=== PATIENT | female | born 1945 | race Caucasian/White ===

== ENCOUNTER → 2017-12-19 | Outpatient (CLI) | payer MEDICARE, BC ==
[~2017-12-19] MED LIST: ASPIRIN81 MG PO; ATENOLOL50 MG PO; ATORVASTATIN CA20 MG PO; BIOTIN2500 MCG PO; CHLORDIAZEPOXID25 MG PO; CLOPIDOGREL75 MG PO; COENZYME Q10200 MG PO; DICYCLOMINE HCL10 MG PO; GEMFIBROZIL600 MG PO; IOPAMIDOL 370 MG/ML 200 ML INFUS..BTL INJ ONE; LOSARTAN-HCTZ1 EAC1 PO; MICARDIS HCT 41 EACH PO; MONTELUKAST SOD10 MG PO; PRESERVISION A1 EAC1 PO; SODIUM CHLORIDE 0.9% 100 ML ONE; SODIUM CHLORIDE 0.9% 50ML 50 ML ONE; TRIAMCINOLONE A15 G1; VITAMIN B-121000 MCG PO; [UNRECOGNIZED DRUG - OTHER] PO
[2017-12-19 10:55] LABS: CREATININE, SERUM 0.92 mg/dL (0.57-1.11)
--- NOTE | 2017-12-19 13:13 | Diagnostic Imaging Report ---
CT abdomen and pelvis, 12/19/2017 Clinical history: Renal artery stenosis Comparison: Aortogram September 28, 2016; CT abdomen March 13, 2017 Technique: Arterial phase CT abdomen and pelvis after administration of 100 mL Isovue-370 intravenous contrast. Volume rendered 3-D images of the arterial tree generated on an independent workstation under physician supervision. DLP: 321.94 Findings: Vascular: Aortic dimensions: Diaphragmatic hiatus: 2 cm Level of the renal arteries: 1.8 cm Infrarenal aorta: 1.6 cm The abdominal aorta is of normal course and caliber. Fsy-zgxh-ptphpqfp arterial sclerosis predominantly infrarenal aorta extending into the common iliac arteries. Common and external iliac arteries are otherwise unremarkable. Celiac axis: Mild wkr-zsij-thcpdyuq ostial calcification. Normal caliber. Atherosclerosis of the splenic artery. SMA: Greater than 75% 1 cm long ostial stenosis. JIGNA: Normal Renal arteries: Right: Proximal segment stent. The proximal aspect of the stent is stenotic (image 44, series 401) with greater than 60% luminal stenosis. Single artery with mild post stenotic dilation of the mid segment. Left: 50% ostial stenosis measuring about 9 mm in length. Single artery. The renal arteries are otherwise unremarkable. Particularly, the mid and distal segments are of otherwise normal caliber, as are the major divisional and arcuate arteries. Nonvascular findings: Lung bases: Normal Liver: Normal Gallbladder: Cholecystectomy. Pancreas: Normal Spleen: Normal. Adrenal glands: Normal Kidneys: Right parenchymal atrophy. Low-attenuation nodules bilaterally in keeping with cysts. Urinary bladder: Normal Uterus and adnexa: Normal Bowel: Normal caliber. Normal appendix. Descending and sigmoid colon diverticulosis. Peritoneum: Normal Lymph nodes: Normal Skeleton: Intact. L3-S1 facet arthropathy without gross neural foramen stenosis. Soft tissues: Normal Impression: 1. Persistent right renal artery stenosis. The indwelling stent is stenotic at its origin, with greater than 60% luminal narrowing. 2. Proximal SMA flow-limiting stenosis (greater than 75%). 3. 50% ostial stenosis of the left renal artery. 4. Atrophic right kidney in keeping with long-standing renal artery stenosis. Simple renal cysts. This report was generated with voice-recognition technology. Errors in space control supervisor can occur. Please interpret accordingly and contact a radiologist if there are any questions regarding the report. Signed by: Dr. Eduardo Arroyo M.D. on 12/19/2017 1:09 PM
== END ==
LOC: CT 10:04
PROVIDERS: ATTEND Internal Medicine Interventional Cardiology
DX: R10.9 Unspecified abdominal pain (principal); I70.1 Atherosclerosis of renal artery
CPT/HCPCS: 36415; 74174; 82565; 84520; J7050; Q9967

== ENCOUNTER 2018-01-09 11:22 | Observation (INO) | payer MEDICARE, BC ==
[2018-01-08 13:15] LABS: BASOPHILS # (AUTO) 0.1 (0.0-0.1); EOSINOPHILS # (AUTO) 0.8 (0.0-0.4); HEMATOCRIT 38.4 % (34.2-44.1); HEMOGLOBIN 12.8 g/dL (12.0-16.0); LYMPHOCYTES # (AUTO) 1.9 (1.0-3.2); LYMPHOCYTES % 26.6 % (18.0-39.1); MEAN CORPUSCULAR HEMOGLOBIN 30.7 pg (28-32); MEAN CORPUSCULAR HGB CONC 33.3 g/dL (31-35); MEAN CORPUSCULAR VOLUME 92.1 fL (81-99); MONOCYTES # (AUTO) 0.8 (0.2-0.8); MONOCYTES % 11.4 % (4.4-11.3); NEUTROPHILS # (AUTO) 3.5 (2.1-6.9); NEUTROPHILS % 49.9 % (38.7-80.0); PLATELET COUNT 224 x10e3/uL (140-360); RED BLOOD COUNT 4.17 x10e6/uL (3.6-5.1); RED CELL DISTRIBUTION WIDTH 13.1 % (11.7-14.4)
[2018-01-08 13:36] LABS: ALBUMIN 3.3 g/dL (3.5-5.0); ALBUMIN/GLOBULIN RATIO 0.8 (0.8-2.0); ANION GAP 12.3 mmol/L (8-16); CREATININE, SERUM 1.06 mg/dL (0.57-1.11); POTASSIUM 4.3 mmol/L (3.5-5.1)
[~2018-01-09] VITALS: Ht 157.5 cm; Wt 62.2 kg
[~2018-01-09 11:22] MED LIST changes: +CALCIUM PO; -IOPAMIDOL 370 MG/ML 200 ML INFUS..BTL INJ ONE; -SODIUM CHLORIDE 0.9% 100 ML ONE; -SODIUM CHLORIDE 0.9% 50ML 50 ML ONE; -TRIAMCINOLONE A15 G1; +TRIAMCINOLONE A15 G1 TOP; +ZANTAC 7575 MG PO
--- OUTSIDE RECORDS SUMMARY | 2018-01-09 11:23 | XMS REPORT ---
Author Author [facility] Address Unknown Phone Unavailable Care Team Providers Care Aircraft Maintenance Manager Name Role Phone CRIS STEVENS Unavailable Unavailable Problems This patient has no known problems. Allergies, Adverse Reactions, Alerts This patient has no known allergies or adverse reactions. Medications This patient has no known medications. Results Test Description Test Time Test Comments Text Results Atomic Results Result Comments CTA ABD/PELVIS [place] [address] Patient Name: BAILEE CAMERON MR #: [id number] : 1945 Age/Sex: 72/F Req #: [id number] Adm Physician: Ordered by: CRIS STEVENS MD Report #: [id number] Location: CT Room/Bed: Procedure: [id number] CT/CTA ABD/PELVIS Exam Date: 12/19/17 Exam Time: 1121 REPORT STATUS: Signed CT abdomen and pelvis, 12/19/2017 Clinical history: Renal artery stenosis Comparison: Aortogram September 28, 2016 ; CT abdomen March 13, 2017 Technique: Arterial phase CT abdomen and pelvis after administration of 100 mL Isovue-370 intravenous contrast. Volume rendered 3-D images of the arterial tree generated on an independent workstation under physician supervision. DLP: 321.94 Findings: Vascular : Aortic dimensions: Diaphragmatic hiatus: 2 cm Level of the renal arteries: 1.8 cm Infrarenal aorta: 1.6 cm The abdominal aorta is of normal course and caliber. Lbd-lqii-dvcokaob arterial sclerosis predominantly infrarenal aorta extending into the common iliac arteries. Common and external iliac arteries are otherwise unremarkable. Celiac axis: Mild non- flow-limiting ostial calcification. Normal caliber. Atherosclerosis of the splenic artery. SMA: Greater than 75% 1 cm long ostial stenosis. JIGNA: Normal Renal arteries: Right: Proximal segment stent. The proximal aspect of the stent is stenotic (image 44, series 401) with greater than 60% luminal stenosis. Single artery with mild post stenotic dilation of the mid segment. Left: 50% ostial stenosis measuring about 9 mm in length. Single artery. The renal arteries are otherwise unremarkable. Particularly, the mid and distal segments are of otherwise normal caliber, as are the major divisional and arcuate arteries. Nonvascular findings: Lung bases: Normal Liver: Normal Gallbladder: Cholecystectomy. Pancreas: Normal Spleen: Normal. Adrenal glands: Normal Kidneys: Right parenchymal atrophy. Low-attenuation nodules bilaterally in keeping with cysts. Urinary bladder: Normal Uterus and adnexa: Normal Bowel: Normal caliber. Normal appendix. Descending and sigmoid colon diverticulosis. Peritoneum: Normal Lymph nodes: Normal Skeleton: Intact. L3-S1 facet arthropathy without gross neural foramen stenosis. Soft tissues: Normal Impression: 1. Persistent right renal artery stenosis. The indwelling stent is stenotic at its origin, with greater than 60% luminal narrowing. 2. Proximal SMA flow- limiting stenosis (greater than 75%). 3. 50% ostial stenosis of the left renal artery. 4. Atrophic right kidney in keeping with long-standing renal artery stenosis. Simple renal cysts. This report was generated with voice-recognition technology. Errors in sleeve tailor can occur. Please interpret accordingly and contact a radiologist if there are any questions regarding the report. Signed by: Dr. Iveth Arroyo M.D. on 12/19/2017 1:09 PM Dictated By: IVETH ARROYO MD 1309 Transcribed By: RODNEY on 12/19/17 1309 COPY TO: CRIS STEVENS MD
--- OUTSIDE RECORDS SUMMARY | 2018-01-09 11:23 | XMS REPORT | Summary of Care ---
Author Author Anastasiia Mcpherson, Roderick [place] Unknown Address [facility] Phone Unavailable Care Team Providers Care Patient Services Rep Name Role Phone JOSEMANUEL Mcpherson, AMILCAR Unavailable Unavailable Unavailable Unavailable Functional Status Name Dates Details Functional status health issues are not documented Status: Name Dates Details Cognitive status health issues are not documented Status: Problems Name Dates Details Hyperlipidemia, acquired (272.4, E78.5) Status: Active GERD (gastroesophageal reflux disease) (530.81, K21.9) Status: Active CKD (chronic kidney disease), stage III (585.3, N18.3) Status: Active Secondary hypertension (405.99, I15.9) Status: Active Dysuria (788.1, R30.0) Status: Active Renovascular hypertension (405.91, I15.0) Status: Active Medications Name Dates Details Clopidogrel Bisulfate 75 MG Oral Tablet R.N. Active Gemfibrozil 600 MG Oral Tablet * Refills: 0 R.N. Active Atenolol 25 MG Oral Tablet * Refills: 0 R.N. Active Aspirin 81 MG Oral Tablet Delayed Release * Refills: 0 R.N. Active Co-Enzyme Q10 200 MG Oral Capsule * Refills: 0 R.N. Active ChlordiazePOXIDE HCl CAPS * Refills: 0 R.N. Active Dicyclomine HCl - 10 MG Oral Capsule * Refills: 0 R.N. Active Triamcinolone Acetonide 0.5 % External Cream * Refills: 0 R.N. Active Zantac 150 MG CAPS * Refills: 0 R.N. Active Calcium CAPS * Refills: 0 R.N. Active Bactrim TABS * Refills: 0 R.N. Active CloNIDine HCl - 0.1 MG Oral Tablet TAKE 1 TABLET for blood pressures >170 during dialysis. * Quantity: 120 Refills: 0 JOSEMANUEL Mcpherson, UGOCHI * Start : 15-Nov-2017 Active Allergies and Adverse Reactions Name Dates Details No Known Drug Allergies (Allergy) Status: Active Procedures Procedure Dates Details [QLH] IRON AND TOTAL IRON BINDING CAPACITY Date: 15-Nov-2017 [L] Ferritin Date: 15-Nov-2017 [L] Vitamin D, 25-Hydroxy, Total - Esoterix Date: 15-Nov-2017 [QLH] RENAL FUNCTION PANEL W/EGFR Date: 15-Nov-2017 [QH] PROTEIN, TOTAL W/CREAT, RANDOM URINE Date: 15-Nov-2017 [L] UA with Culture Reflex Date: 15-Nov-2017 [QLH] PTH, INTACT (WITHOUT CALCIUM) Date: 15-Nov-2017 History of section Completed History of cholecystectomy Completed History of cataract surgery Completed History of hernia repair Completed History of coronary artery stent placement Completed History of renal angioplasty and stenting Completed Immunization Name Dates Details Immunizations not documented Social History Name Dates Details Unknown if ever smoked Vital Signs Date Test Result Details No Known Vitals to report Results Date Description Value Details Results not documented Plan of Care Name Dates Details Planned Observations Planned Goals not documented Planned Encounters Appointment; Roderick Laurent M.D. On: 31-Jan-2018 10:30 Instructions Name Dates Details Instructions not documented Encounters Appointment; Roderick Laurent M.D. Encounter Diagnosis: Problem not documented On: 15-Nov-2017 8:00
[2018-01-09 12:31] VITALS: BP 133/62
[2018-01-09] MEDS ORDERED: DIPHENHYDRAMINE HCL 25 MG CAP ONE (12:56)
[2018-01-09] MEDS ORDERED: ALPRAZOLAM 0.5 MG TAB ONE (12:56)
[2018-01-09 17:22] VITALS: BP 143/59
[2018-01-09 17:53] VITALS: BP 143/59
[2018-01-09 19:53] VITALS: BP 146/96
[2018-01-09 19:54] VITALS: BP 146/96
[2018-01-09] MEDS ORDERED: ATORVASTATIN 20 MG TAB PO SCH (21:00)
[2018-01-10] VITALS (8 sets, daily range): BP systolic 126–164; BP diastolic 48–76
[2018-01-10] MEDS ORDERED: FAMOTIDINE 20 MG TAB PO SCH (07:30)
[2018-01-10] MEDS: ATENOLOL 50 MG TAB PO SCH ×2 (09:00→17:00)
[2018-01-10] MEDS ORDERED: HEPARIN SOD/SOD CHLORIDE 2,000 ML ONE (12:49)
[2018-01-10] MEDS ORDERED: LIDOCAINE HCL 2% LOCAL 20 ML VIAL ONE (12:49)
[2018-01-10] MEDS ORDERED: IOPAMIDOL 300MG/ML 100 ML INFUS..BTL IV ONE (12:50)
[2018-01-10] MEDS ORDERED: HEPARIN SOD (PORCINE) 1000 UNIT/ML 30ML ONE (13:02)
[2018-01-10] MEDS ORDERED: NITROGLYCERIN/D5W 200 MCG/ML 250 ML ONE (13:02)
[2018-01-10] MEDS ORDERED: ALPRAZOLAM 0.5 MG TAB ONE (13:09)
[2018-01-10] MEDS ORDERED: DIPHENHYDRAMINE HCL 25 MG CAP ONE (13:09)
[2018-01-10] MEDS ORDERED: MIDAZOLAM HCL 2 MG/2 ML VIAL ONE ×2 (13:17→14:10)
[2018-01-10] MEDS ORDERED: FENTANYL CITRATE/PF 100MCG/2 ML INJ ONE (13:18)
[2018-01-10] MEDS ORDERED: SODIUM CHLORIDE 0.9% 1000ML 1,000 ML ONE (13:18)
[2018-01-10] MEDS ORDERED: PRASUGREL 10 MG TAB ONE (14:18)
[2018-01-10] MEDS ORDERED: ONDANSETRON HCL INJ 2 MG/ML VIAL ONE (15:09)
--- NOTE | 2018-01-10 15:10 | Operative Report ---
DATE OF PROCEDURE: January 10, 2018 INDICATIONS 1. Renal artery stenosis with renovascular hypertension. 2. Mesenteric ischemia. PROCEDURES PERFORMED 1. Abdominal aortogram. 1. Bilateral renal angiograms. 2. Stent placement in the right renal artery. 3. Placement of right groin Perclose. COMPLICATIONS: None. RECOMMENDATIONS: Staged intervention on ostial superior mesenteric artery stenosis. PROCEDURE: Access was obtained in the right femoral artery. A 6-Kittitian sheath was placed, and 6000 units of intravenous were administered. Right renal artery stent 95% superior mesenteric artery mm vessel. The right renal artery was cannulated using a internal mammary 6-Kittitian guiding catheter. Balloon angioplasty was performed with a 6 mm Lutonix balloon with less than 20% residual stenosis. Excellent flow to the right kidney. Right groin repaired using Perclose. Patient discharged home same day. Job#: [id number] EV
[2018-01-10] MEDS ORDERED: GEMFIBROZIL 600 MG TAB PO SCH (16:30)
== END 2018-01-10 18:29 | disposition home or self-care (01) ==
LOC: CATH LAB 11:22 → IMCU 15:20 → MED/SURG2 20:42
PROVIDERS: ADMIT Internal Medicine Interventional Cardiology; ATTEND Internal Medicine Interventional Cardiology
PROC: 0T733DZ Dilation of Right Kidney Pelvis with Intraluminal Device, Percutaneous Approach (ICD-10-PCS; principal; 2018-01-10)
PROC: 04793ZZ Dilation of Right Renal Artery, Percutaneous Approach (ICD-10-PCS; 2018-01-10)
DX: I70.1 Atherosclerosis of renal artery (principal); I15.0 Renovascular hypertension; I25.10 Atherosclerotic heart disease of native coronary artery without angina pectoris; K55.059 Acute (reversible) ischemia of intestine, part and extent unspecified; Z95.820 Peripheral vascular angioplasty status with implants and grafts; Z95.5 Presence of coronary angioplasty implant and graft; I10 Essential (primary) hypertension; M06.9 Rheumatoid arthritis, unspecified; Z01.812 Encounter for preprocedural laboratory examination; Z79.02 Long term (current) use of antithrombotics/antiplatelets; Z79.82 Long term (current) use of aspirin; Z82.49 Family history of ischemic heart disease and other diseases of the circulatory system
CPT/HCPCS: 36415; 37246; 75625; 75726; 77002; 80053; 80061; 85025; C1725 ×2; C1769 ×2; C1887; G0378 ×2; J1644; J2001; J2250; J2405; J7030; Q9967; 36140; 36252

== ENCOUNTER → 2018-07-22 | Outpatient (CLI) | payer MEDICARE, BC ==
[~2018-07-22] MED LIST changes: +FERROUS GLUCON240 MG PO; +IOPAMIDOL 370 MG/ML 200 ML INFUS..BTL INJ ONE; +MULTI-VITAMIN1 EACH PO; +SODIUM CHLORIDE 0.9% 100 ML 100 ML ONE; +SODIUM CHLORIDE 0.9% 250ML 500 ML ONE; +ZYRTEC10 MG PO
[2018-07-22 12:49] LABS: CREATININE, SERUM 0.98 mg/dL (0.57-1.11)
--- NOTE | 2018-07-22 14:29 | Diagnostic Imaging Report ---
CTA abdomen and pelvis Clinical history: History of renal artery stenosis status post stent placement. Comparison: Aortogram September 28, 2016; CTA Abdomen/Pelvis 12/19/17. Technique: Arterial phase CT abdomen and pelvis after administration of 100 mL Isovue-370 intravenous contrast. Volume rendered 3-D images of the arterial tree generated on an independent workstation under physician supervision. DLP: 660.3 mGy cm Findings: Vascular: Aortic dimensions: Diaphragmatic hiatus: 2 cm Level of the renal arteries: 1.8 cm Infrarenal aorta: 1.4 cm The abdominal aorta is of normal course and caliber. No evidence of aneurysm or dissection. Moderate atherosclerotic calcification of the abdominal aorta and common iliac arteries without evidence of stenosis. Common and external iliac arteries are otherwise unremarkable. Celiac axis: Mild cri-iofv-hdegdsrk ostial calcification. Normal caliber atherosclerosis of the splenic artery. SMA: Interval placement of an SMA stent at the ostium and proximal SMA. Focal severe stenosis (greater than 75% stenosis) at the ostium/proximal aspect of the stent (sagittal series 138 image 68 and axial series 185 image 45). The stent is patent in the mid portion and distally and the SMA is otherwise unremarkable. JIGNA: Normal Renal arteries: Right: Single artery. Patent renal stent status post interval intervention. Mild less than 30 percent in stent stenosis within the mid portion. Left: 50% ostial stenosis measuring about 9 mm in length. Single artery. The renal arteries are otherwise unremarkable and are patent distally. Nonvascular findings: Lung bases: Subpleural 7 mm opacity at the right lung base medially is likely secondary to adjacent osteophyte on series 185, image 4; unchanged. Liver: Unremarkable. Gallbladder: Cholecystectomy. Pancreas: Unremarkable. Spleen: Unremarkable. Adrenal glands: Unremarkable. Kidneys: Right parenchymal atrophy. Subcentimeter hypodensities, too small to characterize, but likely representing cysts. No evidence of hydronephrosis or stone. Urinary bladder: Unremarkable. Uterus and adnexa: Unremarkable. Bowel: Normal caliber. Normal appendix. Diverticulosis without CT evidence of diverticulitis. Small hiatal hernia. Peritoneum: No free air or fluid. Lymph nodes: Normal Bones and soft tissues: No acute bony abnormality. Mild degenerative disc changes. Impression: Right renal artery stent status post interval intervention with patent stent and renal artery. Mild less than 30 percent stenosis within the mid portion of the stent. Interval placement of SMA stent. Greater than 75 percent stenosis at the origin of the SMA stent. Unchanged appearance of 50 percent left renal artery ostial stenosis. Signed by: Dr. Vinicio Maldonado MD on 07/22/2018 2:26 PM
== END ==
LOC: CT 11:51
PROVIDERS: ATTEND Internal Medicine Interventional Cardiology
DX: I70.1 Atherosclerosis of renal artery (principal); R10.9 Unspecified abdominal pain; M54.9 Dorsalgia, unspecified
CPT/HCPCS: 36415; 74174; 82565; 84520; 96360; J7050; Q9967

== ENCOUNTER → 2018-08-20 | Day surgery (SDC) | payer MEDICARE, BC ==
[2018-08-19 12:28] LABS: BASOPHILS # (AUTO) 0.1 (0.0-0.1); BASOPHILS % 0.7 % (0.0-1.0); EOSINOPHILS # (AUTO) 0.5 (0.0-0.4); EOSINOPHILS % 7.7 % (0.0-6.0); HEMATOCRIT 38.9 % (34.2-44.1); HEMOGLOBIN 13.1 g/dL (12.0-16.0); LYMPHOCYTES % 28.7 % (18.0-39.1); MEAN CORPUSCULAR HEMOGLOBIN 31.5 pg (28-32); MEAN CORPUSCULAR HGB CONC 33.7 g/dL (31-35); MEAN CORPUSCULAR VOLUME 93.5 fL (81-99); MONOCYTES # (AUTO) 0.9 (0.2-0.8); MONOCYTES % 12.4 % (4.4-11.3); NEUTROPHILS # (AUTO) 3.4 (2.1-6.9); NEUTROPHILS % 50.2 % (38.7-80.0); PLATELET COUNT 256 x10e3/uL (140-360); RED BLOOD COUNT 4.16 x10e6/uL (3.6-5.1); RED CELL DISTRIBUTION WIDTH 12.9 % (11.7-14.4)
[2018-08-19 12:55] LABS: ALBUMIN 3.7 g/dL (3.5-5.0); CALCIUM 10.1 mg/dL (8.4-10.2); CHOL/HDL RATIO 4.2 (3.0-3.6); CREATININE, SERUM 0.95 mg/dL (0.57-1.11)
[~2018-08-20] VITALS: Ht 157.5 cm; Wt 62.1 kg
[2018-08-20] VITALS (9 sets, daily range): BP systolic 110–169; BP diastolic 57–75
[~2018-08-20] MED LIST changes: +ALPRAZOLAM 0.5 MG TAB ONE; +DIPHENHYDRAMINE HCL 25 MG CAP ONE; +FENTANYL CITRATE/PF 100MCG/2 ML INJ ONE; +HEPARIN SOD (PORCINE) 1000 UNIT/ML 30ML ONE; +HEPARIN SOD/SOD CHLORIDE 2,000 ML ONE; +IOPAMIDOL 300MG/ML 100 ML INFUS..BTL IV ONE; -IOPAMIDOL 370 MG/ML 200 ML INFUS..BTL INJ ONE; +LIDOCAINE HCL 2% LOCAL 20 ML VIAL ONE; +MIDAZOLAM HCL 2 MG/2 ML VIAL ONE; +NITROGLYCERIN/D5W 200 MCG/ML 250 ML ONE; -SODIUM CHLORIDE 0.9% 100 ML 100 ML ONE; +SODIUM CHLORIDE 0.9% 1000ML 1,000 ML ONE; -SODIUM CHLORIDE 0.9% 250ML 500 ML ONE
--- OUTSIDE RECORDS SUMMARY | 2018-08-20 06:31 | XMS REPORT | Summary of Care ---
Author Author Anastasiia Mcpherson, Roderick [facility] Unknown Address [facility] Phone Unavailable Care Team Providers Care Garment Presser Name Role Phone R.N. Unavailable Unavailable Unavailable Unavailable Functional Status Name Dates Details Functional status health issues are not documented Status: Name Dates Details Cognitive status health issues are not documented Status: Problems Name Dates Details GERD (gastroesophageal reflux disease) (530.81, K21.9) Status: Active Secondary hypertension (405.99, I15.9) Status: Active Iron deficiency (280.9, E61.1) Status: Active Stage 2 chronic kidney disease (585.2, N18.2) Status: Active Renovascular hypertension (405.91, I15.0) Status: Active Hyperlipidemia, acquired (272.4, E78.5) Status: Active Presence of stent in coronary artery in patient with coronary artery disease (414.01, I25.10) Status: Active Medications Name Dates Details Clopidogrel Bisulfate 75 MG Oral Tablet R.N. Active Gemfibrozil 600 MG Oral Tablet * Refills: 0 R.N. Active Atenolol 25 MG Oral Tablet TAKE 0.5 TABLET * Refills: 0 R.N. Active 45 Tablet Bottle Aspirin 81 MG Oral Tablet Delayed Release [...] Bactrim TABS * Refills: 0 R.N. Active Atorvastatin Calcium 20 MG Oral Tablet * Refills: 0 R.N. Active Multi For Her 50+ Oral Tablet * Refills: 0 R.N. Active Allergies and Adverse Reactions Name Dates Details No Known Drug Allergies (Allergy) Status: Active Past Medical History Name Dates Details History of dysuria (V13.00, Z87.898) Status: Resolved Procedures Procedure Dates Details History of section Completed History of Cholecystectomy Completed History of Cataract surgery Completed History of Hernia repair Completed History of Coronary artery stent placement Completed History of Renal angioplasty and stenting Completed Immunization Name Dates Details Immunizations not documented Social History Name Dates Details Unknown if ever smoked Vital Signs Date Test Result Details No Known Vitals to report Results Date Description Value Details Results not documented Plan of Care Name Dates Details Planned Observations Planned Goals not documented Planned Encounters Appointment; Roderick Laurent M.D. On: 14-Nov-2018 9:00 Instructions Name Dates Details Instructions not documented Encounters Appointment; Roderick Laurent M.D. Encounter Diagnosis: Problem not documented On: 15-Nov-2017 8:00 Appointment; Roderick Laurent M.D. Encounter Diagnosis: Problem not documented On: 31-Jan-2018 10:30 Appointment; Roderick Laurent M.D. Encounter Diagnosis: Problem not documented On: 16-May-2018 10:30
--- NOTE | 2018-08-20 12:09 | Operative Report ---
DATE OF PROCEDURE: August 20, 2018 INDICATIONS: Mesenteric ischemia. PROCEDURES PERFORMED 1. Abdominal aortogram. 2. Selective bilateral renal angiograms. 3. Selective angiography of the mesenteric vessels. 4. Angioplasty of the superior mesenteric artery. 5. Deployment of right groin Mynx closure device. COMPLICATIONS: None. RECOMMENDATIONS: Dual antiplatelet therapy for life. Access was obtained in the right femoral artery. A 7-Tanzanian sheath was placed. The patient was anticoagulated with 6,000 units of heparin. Abdominal aortogram was used to identify the renal and mesenteric vessels. Selective renal angiography demonstrated patent stent in the right renal ostium, 50% stenosis of the left renal artery, and 90% stenosis of the ostium of the previously placed stent in the superior mesenteric artery. A decision was made to intervene on the superior mesenteric artery. The artery was cannulated using a 6-T[place]anian internal mammary guiding catheter. A short [place] wire was advanced across the lesion. The lesion was dilated with a 5-mm coronary balloon following which a single 6 x 40 mm Lutonix drug-eluting balloon was deployed in the ostium with excellent end result, resolution of gradient, zero percent residual stenosis. No complications. Right groin repaired using a Mynx closure device. Patient discharged home same day. Job#: [id number]
== END | disposition home or self-care (01) ==
LOC: CATH LAB 06:30
PROVIDERS: ATTEND Internal Medicine Interventional Cardiology
DX: I77.1 Stricture of artery (principal); Z95.820 Peripheral vascular angioplasty status with implants and grafts; I10 Essential (primary) hypertension; M06.9 Rheumatoid arthritis, unspecified; Z79.02 Long term (current) use of antithrombotics/antiplatelets; Z79.82 Long term (current) use of aspirin; Z82.49 Family history of ischemic heart disease and other diseases of the circulatory system
CPT/HCPCS: 36415; 37246; 75625; 80053; 80061; 85025; C1725 ×2; C1766; C1769 ×2; C1887; J1644; J2001; J2250; J7030; Q9967; 36247

== ENCOUNTER 2018-11-25 21:39 | Emergency (ER) | payer MEDICARE, BC ==
[~2018-11-25] VITALS: Ht 157.5 cm; Wt 62.1 kg
[~2018-11-25 21:39] MED LIST changes: -ALPRAZOLAM 0.5 MG TAB ONE; -DIPHENHYDRAMINE HCL 25 MG CAP ONE; -FENTANYL CITRATE/PF 100MCG/2 ML INJ ONE; -HEPARIN SOD (PORCINE) 1000 UNIT/ML 30ML ONE; -HEPARIN SOD/SOD CHLORIDE 2,000 ML ONE; -IOPAMIDOL 300MG/ML 100 ML INFUS..BTL IV ONE; -LIDOCAINE HCL 2% LOCAL 20 ML VIAL ONE; -MIDAZOLAM HCL 2 MG/2 ML VIAL ONE; -NITROGLYCERIN/D5W 200 MCG/ML 250 ML ONE; -SODIUM CHLORIDE 0.9% 1000ML 1,000 ML ONE
--- OUTSIDE RECORDS SUMMARY | 2018-11-25 21:42 | XMS REPORT | Continuity of Care Document ---
Author Author [facility] Interface Address Unknown Phone Unavailable Problems Problem Status Onset Date Classification Date Reported Comments Source Vasculitis Active Problem 10/31/2018 Minh Ambroseer Itching Active Problem 10/31/2018 Minh Connolly Skin rash Active Problem 10/31/2018 Minh Connolly Medications Medication Details Route Status Patient Instructions Ordering Provider Order Date Source HydrOXYzine HCl 1 to 2 tablets as needed Orally Active 25 MG Orally every 8 hrs prn for itching Connolly 09/19/2018 Minh Connolly Antiox #8/Om3/Dha/Epa/Lut/Zeax (Preservision Areds 2 Softgel) 1 Each Capsule, 1 Tab Oral Twice A Day Active 01/08/2018 [facility] Atenolol 50 Mg Tablet, 25 Mg Oral Daily Active 01/08/2018 [facility] Biotin 2,500 Mcg Capsule, 5000 Mcg Oral Daily Active 01/08/2018 [facility] Cyanocobalamin (Vitamin B-12) 1,000 Mcg Tab, 1000 Mcg Oral Daily Active 01/08/2018 [facility] Losartan/Hydrochlorothiazide (Losartan-Hctz 100-25 Mg Tab) 1 Each Tablet, 1 Tab Oral Daily Active 01/08/2018 [facility] Montelukast Sodium 10 Mg Tablet, 10 Mg Oral Daily Active 01/08/2018 [facility] Ps Fat Loss Support , 2 Tab Oral Daily Active 01/08/2018 [facility] Telmisartan/Hydrochlorothiazid (Micardis Hct 40-12.5 Mg Tablet) 1 Each Tablet, 1 Tab Oral Daily Active 01/08/2018 [facility] Aspirin 81 Mg Tab.chew Daily Active [facility] Atenolol 50 Mg Tablet Daily Active [facility] Atorvastatin Calcium 20 Mg Tablet Bedtime Active [facility] Calcium Daily Active [facility] Chlordiazepoxide Hcl 25 Mg Capsule As Needed Active [facility] Clopidogrel Bisulfate (Clopidogrel) 75 Mg Tablet Daily Active [facility] Dicyclomine Hcl 10 Mg Capsule Daily Active [facility] Gemfibrozil 600 Mg Tablet Twice A Day Active [facility] Ps Fat Loss Support Twice A Day Active [facility] Ranitidine Hcl (Zantac 75) 75 Mg Tablet As Needed as needed for Indigestion Active THERAPEUTICALLY SUBSTITUTED WITH FAMOTIDINE 20MG [facility] Triamcinolone Acet (Triamcinolone Acetonide) 15 Gm Cr As Needed as needed for Itching Active [facility] Ubidecarenone (Coenzyme Q10) 200 Mg Capsule Daily Active [facility] Allergies, Adverse Reactions, Alerts Substance Category Reaction Severity Reaction type Status Date Reported Comments Source Penicillin Unknown Allergy to Substance Active 05/29/2017 [facility] Immunizations Immunization Date Given Site Status Last Updated Comments Source Results Order Name Results Value Reference Range Date Interpretation Comments Source Automated blood basophil count (count/volume) Automated blood basophil count (count/volume) 0.1 0.0 - 0.1 01/08/2018 [facility] Automated blood basophil count as percentage of total leukocytes Automated blood basophil count as percentage of total leukocytes 1.0 0.0 - 1.0 01/08/2018 [facility] Automated blood eosinophil count Automated blood eosinophil count 0.8 0.0 - 0.4 01/08/2018 [facility] Automated blood eosinophil count as percentage of total leukocytes Automated blood eosinophil count as percentage of total leukocytes 11.0 0.0 - 6.0 01/08/2018 [facility] Automated blood hematocrit (volume fraction) Automated blood hematocrit (volume fraction) 38.4 34.2 - 44.1 01/08/2018 [facility] Automated blood lymphocyte count as percentage ot total leukocytes Automated blood lymphocyte count as percentage ot total leukocytes 26.6 18.0 - 39.1 01/08/2018 [facility] Automated blood monocyte count as percentage of total leukocytes Automated blood monocyte count as percentage of total leukocytes 11.4 4.4 - 11.3 01/08/2018 [facility] Automated blood neutrophil count Automated blood neutrophil count 3.5 2.1 - 6.9 01/08/2018 [facility] Automated blood platelet count (count/volume) Automated blood platelet count (count/volume) 224 140 - 360 01/08/2018 [facility] Automated blood segmented neutrophil count as percentage of total leukocytes Automated blood segmented neutrophil count as percentage of total leukocytes 49.9 38.7 - 80.0 01/08/2018 [facility] Automated erythrocyte mean corpuscular hemoglobin (mass per erythrocyte) Automated erythrocyte mean corpuscular hemoglobin (mass per erythrocyte) 30.7 28 - 32 01/08/2018 [facility] Automated erythrocyte mean corpuscular hemoglobin concentration measurement (mass/volume) Automated erythrocyte mean corpuscular hemoglobin concentration measurement (mass/volume) 33.3 31 - 35 01/08/2018 [facility] Automated erythrocyte mean corpuscular volume Automated erythrocyte mean corpuscular volume 92.1 81 - 99 01/08/2018 [facility] Blood erythrocytes automated count (number/volume) Blood erythrocytes automated count (number/volume) 4.17 3.6 - 5.1 01/08/2018 [facility] Blood hemoglobin measurement (moles/volume) Blood hemoglobin measurement (moles/volume) 12.8 12.0 - 16.0 01/08/2018 [facility] Blood leukocytes automated count (number/volume) Blood leukocytes automated count (number/volume) 7.03 4.8 - 10.8 01/08/2018 [facility] Blood lymphocytes count (number/volume) Blood lymphocytes count (number/volume) 1.9 1.0 - 3.2 01/08/2018 [facility] Blood monocytes automated count (number/volume) Blood monocytes automated count (number/volume) 0.8 0.2 - 0.8 01/08/2018 [facility] Estimated glomerular filtration rate (GFR) determination Estimated glomerular filtration rate (GFR) determination 51 60 01/08/2018 [facility] Glucose measurement Glucose measurement 104 74 - 118 01/08/2018 [facility] Plasma globulin measurement (mass/volume) Plasma globulin measurement (mass/volume) 4.0 2.3 - 3.5 01/08/2018 [facility] Serum or plasma alanine aminotransferase measurement (enzymatic activity/volume) Serum or plasma alanine aminotransferase measurement (enzymatic activity/volume) 15 0 - 55 01/08/2018 [facility] Serum or plasma albumin measurement (mass/volume) Serum or plasma albumin measurement (mass/volume) 3.3 3.5 - 5.0 01/08/2018 [facility] Serum or plasma albumin/globulin mass ratio Serum or plasma albumin/globulin mass ratio 0.8 0.8 - 2.0 01/08/2018 [facility] Serum or plasma alkaline phosphatase measurement (enzymatic activity/volume) Serum or plasma alkaline phosphatase measurement (enzymatic activity/volume) 80 40 - 150 01/08/2018 [facility] Serum or plasma anion gap Serum or plasma anion gap 12.3 8 - 16 01/08/2018 [facility] Serum or plasma calcium measurement (mass/volume) Serum or plasma calcium measurement (mass/volume) 10.0 8.4 - 10.2 01/08/2018 [facility] Serum or plasma carbon dioxide, total measurement (moles/volume) Serum or plasma carbon dioxide, total measurement (moles/volume) 26 22 - 29 01/08/2018 [facility] Serum or plasma chloride measurement (moles/volume) Serum or plasma chloride measurement (moles/volume) 108 98 - 107 01/08/2018 [facility] Serum or plasma cholesterol in HDL measurement (mass/volume) Serum or plasma cholesterol in HDL measurement (mass/volume) 32 40 - 60 01/08/2018 [facility] Serum or plasma cholesterol in LDL measurement (mass/volume) Serum or plasma cholesterol in LDL measurement (mass/volume) 84 60 - 130 01/08/2018 [facility] Serum or plasma cholesterol measurement (mass/volume) Serum or plasma cholesterol measurement (mass/volume) 160 0 - 199 01/08/2018 [facility] Serum or plasma creatinine measurement (mass/volume) Serum or plasma creatinine measurement (mass/volume) 1.06 0.57 - 1.11 01/08/2018 [facility] Serum or plasma potassium measurement (moles/volume) Serum or plasma potassium measurement (moles/volume) 4.3 3.5 - 5.1 01/08/2018 [facility] Serum or plasma protein measurement (mass/volume) Serum or plasma protein measurement (mass/volume) 7.3 6.5 - 8.1 01/08/2018 [facility] Serum or plasma sodium measurement (moles/volume) Serum or plasma sodium measurement (moles/volume) 142 136 - 145 01/08/2018 [facility] Serum or plasma total bilirubin measurement (mass/volume) Serum or plasma total bilirubin measurement (mass/volume) 0.6 0.2 - 1.2 01/08/2018 [facility] Serum or plasma total cholesterol/cholesterol in HDL mass ratio Serum or plasma total cholesterol/cholesterol in HDL mass ratio 5.0 3.0 - 3.6 01/08/2018 [facility] Serum or plasma triglyceride measurement (mass/volume) Serum or plasma triglyceride measurement (mass/volume) 219 0 - 149 01/08/2018 [facility] Serum or plasma urea nitrogen measurement (mass/volume) Serum or plasma urea nitrogen measurement (mass/volume) 20 7 - 26 01/08/2018 [facility] Serum or plasma urea nitrogen/creatinine mass ratio Serum or plasma urea nitrogen/creatinine mass ratio 19 6 - 25 01/08/2018 [facility] Red Cell Distribution Width 13.1 11.7 - 14.4 01/08/2018 [facility] IM GRANULOCYTES % 0.1 0.0 - 1.0 01/08/2018 [facility] Absolute Immature Granulocyte (auto 0.01 0 - 0.1 01/08/2018 [facility] Aspartate Amino Transf (AST/SGOT) 24 5 - 34 01/08/2018 [facility] Activated partial thromboplastin time (aPTT) in platelet poor plasma bycoagulation assay Activated partial thromboplastin time (aPTT) in platelet poor plasma bycoagulation assay 29.1 23.8 - 35.5 05/29/2017 [facility] INR in Platelet poor plasma by Coagulation assay INR in Platelet poor plasma by Coagulation assay 0.95 05/29/2017 [facility] Prothrombin time (PT) in platelet poor plasma by coagulation assay Prothrombin time (PT) in platelet poor plasma by coagulation assay 13.1 11.9 - 14.5 05/29/2017 [facility] Vital Signs Vital Sign Value Date Comments Source Encounters Location Location Details Encounter Type Encounter Number Reason For Visit Attending Provider ADM Date DC Date Status Source Registered Surgical Day [facility] [id number] CRIS STEVENS MD 05/29/2017 [facility] Departed Emergency Room [id number] TONY METCALF MD 05/29/2017 05/29/2017 [facility] Registered Clinic [id number] CRIS STEVENS MD 12/19/2017 [facility] Discharged Inpatient (obs) [id number] CRIS STEVENS MD 01/09/2018 01/10/2018 [facility] Procedures Procedure Code Date Perfomer Comments Source Computed tomography angiography of abdomen and pelvis without then withcontrast [id number] 12/19/2017 [facility] OPEN/PERQ PLACE STENT 1ST [id number] 05/29/2017 [facility]
--- OUTSIDE RECORDS SUMMARY | 2018-11-25 21:43 | XMS REPORT ---
Author Author Mor Connolly Organization [employer] Address Unknown Phone Unavailable Care Team Providers Care Bindery Worker Name Role Phone Mor Connolly CP Unavailable Allergies No Known Allergies Problems Problem Type Condition Code Onset Dates Condition Status Problem Vasculitis I77.6 Active Problem Itching L29.9 Active Problem Skin rash R21 Active Assessment Itching L29.9 Active Medications Medication Code System Code Instructions Start Date End Date Status Dosage HydrOXYzine HCl [facility] [id number] 25 MG Orally every 8 hrs prn for itching Sep 19, 2018 Active 1 to 2 tablets as needed Results No Known Results Summary Purpose [employer] Submission
--- OUTSIDE RECORDS SUMMARY | 2018-11-25 21:43 | XMS REPORT | Summary of Care ---
Author Author Roderick Laurent M.D. Organization Unknown Address [facility] Phone Unavailable Care Team Providers Care Manager Math Name Role Phone Roderick Laurent M.D. Unavailable Unavailable NICKI Mcpherson, YAMILA MICHEL Unavailable Unavailable Roderick Laurent MD Unavailable Unavailable Unavailable Unavailable Functional Status Name Dates Details Functional status health issues are not documented Status: Name Dates Details Cognitive status health issues are not documented Status: Problems Name Dates Details GERD (gastroesophageal reflux disease) (530.81, K21.9) Status: Active Iron deficiency (280.9, E61.1) Status: Active Presence of stent in coronary artery in patient with coronary artery disease (414.01, I25.10) Status: Active Stage 2 chronic kidney disease (585.2, N18.2) Status: Active History of stent insertion of renal artery (V45.89, Z98.890) Status: Active Secondary hypertension (405.99, I15.9) Status: Active Renovascular hypertension (405.91, I15.0) Status: Active Hyperlipidemia, acquired (272.4, E78.5) Status: Active Medications Name Dates Details Clopidogrel Bisulfate 75 MG Oral Tablet TAKE 1 TABLET DAILY. Active 30 Tablet Bottle Gemfibrozil 600 MG Oral Tablet TAKE 1 TABLET TWICE DAILY 30 MINUTES BEFORE MEALS. * Refills: 0 Active Atenolol 25 MG Oral Tablet TAKE 0.5 TABLET DAILY * Refills: 0 Active Aspirin 81 MG Oral Tablet Delayed Release TAKE 1 TABLET DAILY. * Refills: 0 Active Co-Enzyme Q10 200 MG Oral Capsule TAKE 1 CAPSULE 4 TIMES DAILY * Refills: 0 Active chlordiazePOXIDE HCl - 10 MG Oral Capsule TAKE 1 CAPSULE 4 TIMES DAILY NEEDED. * Refills: 0 Active Dicyclomine HCl - 10 MG Oral Capsule TAKE 1 CAPSULE DAILY * Refills: 0 Active Triamcinolone Acetonide 0.5 % External Cream * Refills: 0 Active Zantac 150 MG CAPS TAKE 1 CAPSULE TWICE DAILY PRN * Refills: 0 Active Calcium CAPS * Refills: 0 Active Bactrim TABS * Refills: 0 Active Atorvastatin Calcium 20 MG Oral Tablet TAKE 1 TABLET AT BEDTIME. * Quantity: 90 Refills: 3 Active 90 Tablet Bottle Multi For Her 50+ Oral Tablet * Refills: 0 Active Ferrous Gluconate 324 (38 Fe) MG Oral Tablet TAKE 1 TABLET DAILY. * Quantity: 1 Refills: 0 NICKI Mcpherson YAMILA MICHEL * Start : 24-Nov-2018 Active Allergies and Adverse Reactions Name Dates Details No Known Drug Allergies (Allergy) Status: Active Past Medical History Name Dates Details History of dysuria (V13.00, Z87.898) Status: Resolved Procedures Procedure Dates Details History of section Completed History of Hernia repair Completed History of Cholecystectomy Completed History of Cataract surgery Completed History of Renal angioplasty and stenting Completed History of Coronary artery stent placement Completed Immunization Name Dates Details Immunizations not documented Social History Name Dates Details Unknown if ever smoked Vital Signs Date Test Result Details [id number] BP Systolic 120 mm[Hg] Status: BP Diastolic 72 mm[Hg] Status: Height 62 in Status: Weight 128 lb Status: Body Mass Index Calculated 23.41 kg/m2 Status: Body Surface Area Calculated 1.58 m2 Status: Heart Rate 74 /min Status: Results Date Description Value Details Results not documented Plan of Care Name Dates Details Planned Observations Planned Goals not documented Planned Encounters Appointment; Roderick Laurent M.D. On: 15-May-2019 11:00 Interventions Provided Medication Changes* Ferrous Gluconate 324 (38 Fe) MG Oral Tablet - Start Instructions* Patient Specific Education Given; Done: 24 Nov 2018 Discussion/Summary* Mrs. Singer, very pleasant 73 years old woman, with CAD and cuca-atherosclerotic disease s/p stent placement, has been following with nephrology clinic following referral for management of chronic kidney disease. First clinic visit 11/15/2017. * Renal atherovascular disease s/p right renal artery stenting 02/2017. * -- CT abdomen/pelvis obtained and showed bilateral cortical thinning with right renal atrophy. There is extensive arteriosclerosis of the abdominal aorta, splenic artery and mild origin atherosclerosis of the renal arteries, celiac and SMA. Pt underwent right arterial stent. * -- Her pre-stenting Cr 1.28 mg/dL and eGFR 41 mL/min/1.73 m2, and post- stenting Cr 1.03 mg/dL and eGFR 52 mL/min/1.73 m2 in 06/2017. * Chronic kidney disease stage II, initially stage III complicated by renal atherosclerosis vascular disease. * -- Her pre-stenting Cr 1.28 mg/dL and eGFR 41 mL/min/1.73 m2, and post- stenting Cr 1.03 mg/dL and eGFR 52 mL/min/1.73 m2 in 06/2017. * -- Cr 1.08 -> 0.89 -> 0.91 mg/dL. * -- eGFR 64 -> 62 mL/min/1.73 m2. * -- UPC 151 mg/g (10/2018), 94 mg/g (04/2018), UPC 105 mg/g (11/2017), stable. * -- HCO3 27, at goal, no indication for NaHCO3 supplement. * -- No hyperphosphatemia. * Iron deficiency * -- Iron 93, ferritin 38, iron saturation 27% (04/2018) compared to low iron saturation 22% (11/2017). Hgb 13.5. Not anemic. Asymptomatic. * -- Continue with iron supplement. * Metabolic bone disease - related to chronic kidney disease. * -- PTH 32 pg/mL, vitamin D 31 ng/mL, phos 4 mg/dL. * -- No indication for medication at this time. * Abnormal urinalysis with LE 1+ but pt asymptomatic. Will continue to follow for now. * -- Will have pt return to clinic in 6 months with labs. Pt will get labs with her PCP to avoid duplication. * Other comorbidities: * Coronary artery disease (EF 50-55%, status post LHC and PCI 12/19/2017, and [facility] with balloon angioplasty and RCA stent 01/10/2018, no PABLO with contrasts at that time). * S/p cholecystectomy and hernia surgery 01/2011. * Multilevel posterior disc bulge within lumbar spine. * Colonoscopy [address] Butt. Instructions Name Dates Details Instructions not documented Encounters Appointment; Roderick Laurent M.D. Encounter Diagnosis: Problem not documented On: 15-Nov-2017 8:00 Appointment; Roderick Laurent M.D. Encounter Diagnosis: Problem not documented On: 31-Jan-2018 10:30 Appointment; Roderick Laurent M.D. Encounter Diagnosis: Problem not documented On: 16-May-2018 10:30 Appointment; Roderick Laurent M.D. Encounter Diagnosis: Problem not documented On: 14-Nov-2018 9:00
[2018-11-25] MEDS ORDERED: TOBRAMYCIN 0.3% OPTH OINT 3.5 GM TUBE OP ONE (22:00)
[2018-11-26 01:18] VITALS: BP 139/58
== END 2018-11-26 00:55 | disposition home or self-care (01) ==
LOC: ER 21:39
DX: H57.12 Ocular pain, left eye (principal); H11.32 Conjunctival hemorrhage, left eye; S05.32XA Ocular laceration without prolapse or loss of intraocular tissue, left eye, initial encounter; W22.8XXA Striking against or struck by other objects, initial encounter; Y92.008 Other place in unspecified non-institutional (private) residence as the place of occurrence of the external cause; I10 Essential (primary) hypertension; I25.10 Atherosclerotic heart disease of native coronary artery without angina pectoris; E78.00 Pure hypercholesterolemia, unspecified
CPT/HCPCS: 99283

== ENCOUNTER 2019-11-01 15:19 | Emergency (ER) | payer MEDICARE, BC ==
[~2019-11-01] VITALS: Ht 157.5 cm; Wt 62.1 kg
--- OUTSIDE RECORDS SUMMARY | 2019-11-01 15:23 | XMS REPORT | Summary of Care ---
Author Author Roderick Laurent M.D. Organization Unknown Address [facility] Phone Unavailable Care Team Providers Care Assistant Golf Coach Name Role Phone Roderick Laurent M.D. Unavailable Unavailable NICKI Mcpherson, YAMILA MICHEL Unavailable Unavailable Roderick Laurent MD Unavailable Unavailable Unavailable Unavailable Functional Status Name Dates Details Functional status health issues are not documented Status: Name Dates Details Cognitive status health issues are not documented Status: Problems Name Dates Details Presence of stent in coronary artery in patient with coronary artery disease (414.01, I25.10) Status: Active Secondary hypertension (405.99, I15.9) Status: Active History of stent insertion of renal artery (V45.89, Z98.890) Status: Active Hyperlipidemia, acquired (272.4, E78.5) Status: Active Iron deficiency (280.9, E61.1) Status: Active Renovascular hypertension (405.91, I15.0) Status: Active GERD (gastroesophageal reflux disease) (530.81, K21.9) Status: Active Stage 2 chronic kidney disease (585.2, N18.2) Status: Active Medications Name Dates Details Clopidogrel [...] Planned Encounters Appointment; Roderick Laurent M.D. On: 13-May-2020 11:00 Interventions Provided Discussion/Summary* Mrs. Singer, very pleasant 73 years [...] -- Cr 1.08 -> 0.89 -> 0.91 --> 1.01 mg/dl * -- eGFR 64 -> 62 --> 54 mL/min/1.73 m2. * -- UPC 151 mg/g (10/2018), 94 mg/g (04/2018), UPC 105 mg/g (11/2017), stable. * -- HCO3 23, no indication for NaHCO3 supplement. * Iron deficiency * -- Iron 93, ferritin 38, iron saturation 27% (04/2018) compared to low iron saturation 22% (11/2017). Hgb 13.5. Not anemic. Asymptomatic. * -- Continue with iron supplement. * Metabolic bone disease - related to chronic kidney disease. * -- PTH 32 pg/mL, vitamin D 31 ng/mL, phos 4 mg/dL. * -- No indication for medication at this time. * -- Will have pt return to clinic in 1 year with labs. Pt will get labs with her PCP as requested. Which includes Urinalysis , Urine protein creatinine ratio and Renal Panel. She gets routine labs every 6 months. She is also requested if any change in her next lab test please reschedule to see us prior to one year. * Other comorbidities: * Coronary artery disease (EF 50-55%, status post LHC and PCI 12/19/2017, and C with balloon angioplasty and RCA stent 01/10/2018, [...] Diagnosis: Problem not documented On: 14-Nov-2018 9:00 Appointment; Roderick Laurent M.D. Encounter Diagnosis: Problem not documented On: 15-May-2019 11:00
[2019-11-01] MEDS ORDERED: HYDROXYZINE HCL25 MG PO (15:54)
--- NOTE | 2019-11-01 16:06 | Diagnostic Imaging Report ---
Exam: Pelvis, single frontal view History: Trauma Comparison: CT abdomen and pelvis 07/22/2018 Findings: No acute displaced fracture or dislocation. The femoral heads project appropriately over the acetabula. Sacroiliac joints and superior sacral foramina are intact. Degenerative changes of the partially visualized lower lumbar spine. Soft tissues are unremarkable. Impression: No acute osseous abnormality. Signed by: Dr. Natalio Avalos M.D. on 11/01/2019 4:03 PM
--- NOTE | 2019-11-01 16:08 | Diagnostic Imaging Report ---
Exam: Left elbow 3 views History: Fall, pain Comparison: None. Findings: No acute, displaced fracture or dislocation. No elbow joint effusion. Joint space is well-maintained. Soft tissues unremarkable. Impression: No acute osseous abnormality. Signed by: Dr. Natalio Avalos M.D. on 11/01/2019 4:05 PM
[2019-11-01] MEDS ORDERED: ACETAMINOPHEN 325 MG TAB PO ONE (16:15)
--- NOTE | 2019-11-01 16:15 | Diagnostic Imaging Report ---
CT BRAIN WO HISTORY: 73-year-old female status post fall and currently on antiplatelet medication. COMPARISON: None. TECHNIQUE: Noncontrast axial scans were obtained from skull base to the vertex. Coronal and sagittal reconstructions obtained from the axial data. One or more of the following dose reduction techniques were used: Automated exposure control, adjustment of the mA and/or kV according to patient size, and/or utilization of iterative reconstruction technique. DISCUSSION: Scalp/Skull: A convex hyperdense hematoma in the left frontoparietal scalp measures 0.7 cm in thickness and is associated with moderate soft tissue swelling. No radiopaque debris within the soft tissues. Brain sulci: Mildly prominent. Ventricles: Mild compensatory dilatation. No hydrocephalus. Extra-axial spaces: No masses or fluid collections. Parenchyma: Patchy hypodense foci within the deep and periventricular white matter represent chronic small vessel ischemic changes. No mass, hemorrhage, or large vascular territory acute infarct. Dural sinuses: No abnormal densities. Sellar/Suprasellar region: Intact. No masses. Skull base: Intact. Incidental findings: None. IMPRESSION: 1. No acute intracranial abnormalities or skull fracture. 2. Left frontoparietal scalp hematoma with associated moderate soft tissue swelling. Additional findings: Mild chronic microvascular ischemic changes. Mild generalized volume loss. This preliminary report was issued by Dr. Salvatore Hill M.D. neuroradiology fellow at 1614 hours on 11/01/2019. The images and preliminary report provided by the neuroradiology fellow were reviewed and a final report issued by Dr. Bruno neuroradiology faculty on 11/01/2019 at 8:30 PM. Signed by: Dr. Modesta Kim M.D. on 11/01/2019 8:31 PM
--- NOTE | 2019-11-01 16:42 | Diagnostic Imaging Report ---
CT CERVICAL SPINE WO HISTORY: 73-year-old female status post fall COMPARISON: None. TECHNIQUE: CT of the cervical spine without contrast. Sagittal and coronal reformations were created. One or more of the following dose reduction techniques were used: Automated exposure control, adjustment of the mA and/or kV according to patient size, and/or utilization of iterative reconstruction technique. FINDINGS: Straightening of normal cervical lordosis which may be secondary to positioning or muscle spasm. Anterior translation of C4-C5 measures approximately 0.3 cm. The spinolaminar line is also disrupted at C4-C5 with the spinolaminar line at C4 located anteriorly relative to C5. A convex hyperdense focus at C3-C4 measures approximately 0.9 x 0.3 cm in CC and AP dimension (series 500 image 20) and is concerning for epidural hemorrhage with associated anterior translation of the C4 vertebral body. The hyperdense focus exerts mass effect on the cervical cord at C3-C4 and causes mild canal stenosis. No fractures, compression deformity, or destructive osseous lesions are seen. Uncovertebral hypertrophy and facet arthropathy is present from C2-C3 through C7-T1. Mild degenerative disc changes at C5-C6 and C6-C7. The craniocervical junction is intact. No gross spinal canal masses are seen. The paravertebral and paraspinal soft tissues are unremarkable. Lung apices are unremarkable where visualized specifically no apical pneumothoraces. IMPRESSION: 1. Anterior translation of C4-C5 with suspected hyperdense focus in the epidural space at C3-C4. Findings may be related to patient positioning and beam hardening artifact however ligamentous injury and epidural hemorrhage cannot be excluded on CT. MRI of the cervical spine is recommended to exclude ligamentous injury. 2. No acute osseous abnormalities. 3. Uncovertebral and facet hypertrophy throughout the cervical spine. Findings were discussed with Dr. Mendez via phone at 1640 hours on 11/01/2019 and the preliminary report was issued by Dr. Salvatore Hill M.D. at 1641 hours on 11/01/2019. Signed by: DR Vladimir Mckeon M.D. on 11/01/2019 8:25 PM
--- NOTE | 2019-11-01 17:26 | NUR ---
EMMY LOCK IN TO SEE THE PT. AND DISCUSS POC. MRI CALLED OUT.
--- NOTE | 2019-11-01 19:06 | Diagnostic Imaging Report ---
EXAM: Cervical spine MRI without contrast History: 73-year-old female status post fall with findings on CT concerning for possible ligament injury Comparison studies: Cervical spine CT without contrast 11/01/2019 Technique: Sagittal T1, T2 and IR, axial T2 and axial gradient echo Intravenous contrast: None Findings: Alignment: Normal lordosis. No scoliosis. Cervicomedullary junction: No abnormalities. Patent foramen magnum. No Chiari one malformation Soft tissues: No T2 hyperintense inflammatory changes. Spinal cord and cervical spine ligaments: The cord is normal in size and signal from the foramen magnum through T4. No T2 hyperintense signal within the cervical spine ligaments concerning for injury. Vertebrae: Normal in height and signal intensity. No fractures, infection or neoplasm. Degenerative changes: C2-C3: Mildly degenerated disc with small central disc protrusion. No canal or foraminal stenosis. C3-C4: Mildly degenerated disc with superimposed central disc protrusion causes mild canal stenosis. Mild bilateral foraminal stenosis secondary to degenerative disc changes and uncovertebral arthrosis. C4-C5: Mildly degenerated disc causes mild canal stenosis. Mild bilateral foraminal stenosis secondary to degenerative disc changes and uncovertebral arthrosis. C5-C6: Mildly degenerated disc causes mild canal stenosis. Moderate right foraminal stenosis secondary to degenerative disc changes, uncovertebral arthrosis and facet arthrosis. C6-C7: Mildly degenerated disc without canal stenosis. Mild left foraminal stenosis secondary to degenerative disc changes and uncovertebral arthrosis. C7-T1: No abnormalities. IMPRESSION: 1. No acute abnormality specifically no sign of ligamentous injury. 2. Mild degenerative disc changes throughout the cervical spine. 3. No significant canal stenosis. 4. Moderate right foraminal stenosis at C5-C6. This preliminary report was issued by Dr. Salvatore Hill M.D. neuroradiology fellow at 1905 hours on 11/01/2019. Signed by: DR Vladimir Mckeon M.D. on 11/01/2019 8:22 PM
== END 2019-11-01 19:42 | disposition home or self-care (01) ==
LOC: ER 15:19
DX: S00.83XA Contusion of other part of head, initial encounter (principal); S80.01XA Contusion of right knee, initial encounter; S50.02XA Contusion of left elbow, initial encounter; S70.02XA Contusion of left hip, initial encounter; W01.198A Fall on same level from slipping, tripping and stumbling with subsequent striking against other object, initial encounter; Y93.89 Activity, other specified; Y92.014 Private driveway to single-family (private) house as the place of occurrence of the external cause; Z88.0 Allergy status to penicillin; Z90.49 Acquired absence of other specified parts of digestive tract; I25.10 Atherosclerotic heart disease of native coronary artery without angina pectoris; Z98.61 Coronary angioplasty status; K21.9 Gastro-esophageal reflux disease without esophagitis; E78.5 Hyperlipidemia, unspecified; Z82.49 Family history of ischemic heart disease and other diseases of the circulatory system
CPT/HCPCS: 70450; 72125; 72141; 72170; 93005; 99284

== ENCOUNTER → 2021-01-20 | Day surgery (SDC) | payer MEDICARE, BC ==
[2021-01-18 11:01] LABS: BASOPHILS # (AUTO) 0.1 (0.0-0.1); BASOPHILS % 1.1 % (0.0-1.0); EOSINOPHILS # (AUTO) 0.3 (0.0-0.4); EOSINOPHILS % 3.8 % (0.0-6.0); HEMATOCRIT 37.6 % (34.2-44.1); HEMOGLOBIN 12.7 g/dL (12.0-16.0); LYMPHOCYTES # (AUTO) 1.8 (1.0-3.2); LYMPHOCYTES % 27.5 % (18.0-39.1); MEAN CORPUSCULAR HEMOGLOBIN 30.3 pg (28-32); MEAN CORPUSCULAR HGB CONC 33.8 g/dL (31-35); MEAN CORPUSCULAR VOLUME 89.7 fL (81-99); MONOCYTES # (AUTO) 0.7 (0.2-0.8); MONOCYTES % 10.7 % (4.4-11.3); NEUTROPHILS # (AUTO) 3.8 (2.1-6.9); NEUTROPHILS % 56.6 % (38.7-80.0); PLATELET COUNT 263 x10e3/uL (140-360); RED BLOOD COUNT 4.19 x10e6/uL (3.6-5.1); RED CELL DISTRIBUTION WIDTH 13.2 % (11.7-14.4)
[~2021-01-20] MED LIST changes: +HYDROXYZINE HCL25 MG PO; +STOOL SOFTENER1 EACH PO; +ULTRAM 50MG50 MG PO; +VIT C PO; +VIT D3 PO; +ZINC PO
[2021-01-20 09:30] VITALS: BP 115/80
== END | disposition home or self-care (01) ==
LOC: OR 06:52
PROVIDERS: ATTEND Internal Medicine Gastroenterology
DX: Z12.11 Encounter for screening for malignant neoplasm of colon (principal); K57.30 Diverticulosis of large intestine without perforation or abscess without bleeding; K64.8 Other hemorrhoids; I10 Essential (primary) hypertension; I25.10 Atherosclerotic heart disease of native coronary artery without angina pectoris; Z88.0 Allergy status to penicillin; Z01.810 Encounter for preprocedural cardiovascular examination; Z01.812 Encounter for preprocedural laboratory examination; Z20.822 Contact with and (suspected) exposure to COVID-19; Z79.02 Long term (current) use of antithrombotics/antiplatelets; Z79.82 Long term (current) use of aspirin; Z95.818 Presence of other cardiac implants and grafts
CPT/HCPCS: 36415; 85025; 93005; G0121; U0002; 45378